=== PATIENT | male | born 1970 | race African-American/Black ===

== ENCOUNTER 2020-01-05 22:21 | Emergency (ER) | payer SELFPAY ==
[~2020-01-05] VITALS: Ht 177.8 cm; Wt 113.0 kg
[2020-01-05] MEDS ORDERED: HALOPERIDOL LACTATE 5MG/ML VIAL IM STA (22:48)
[2020-01-05] MEDS ORDERED: SODIUM CHLORIDE 0.9% 1,000 ML IV ONE (22:48)
[2020-01-05] MEDS ORDERED: LORAZEPAM 2MG/ML CPJ IM STA (22:48)
[2020-01-05] MEDS ORDERED: BACITRACIN ZINC OINT UDPKT TOP ONE (23:00)
[2020-01-05] MEDS ORDERED: LIDOCAINE 1%/EPI 1:100,000 10 ML VIAL IJ ONE (23:00)
[2020-01-05] MEDS ORDERED: TETANUS, DIPHTHERIA, PERTUSSIS VAC/PF 0.5ML (>7YR OLD) IM ONE (23:00)
[2020-01-05 23:31] LABS: BASOPHILS % 0.7 % (0.0-2.0); EOSINOPHILS % 0.5 % (0.0-5.0); HEMATOCRIT. 39.4 % (42.0-52.0); HEMOGLOBIN. 13.5 g/dL (14.0-18.0); LYMPHOCYTES % 15.6 % (20.0-50.0); MEAN CORPUSCULAR HEMOGLOBIN 30.2 pg (28.0-32.0); MEAN CORPUSCULAR VOLUME 88.2 fL (80.0-94.0); MEAN PLATELET VOLUME 8.1 fl (7.4-10.4); MONOCYTES % 7.3 % (2.0-8.0); NEUTROPHILS % 75.9 % (40.0-76.0); PLATELET 321 x1000/uL (130-400); RED BLOOD CELL COUNT 4.46 mill/uL (4.7-6.1); RED CELL DISTRIBUTION WIDTH 13.9 % (11.6-14.6)
[2020-01-05 23:36] LABS: CHLORIDE 105 mEq/L (98-107)
[2020-01-05 23:41] LABS: ETHANOL BLOOD 14 mg/dL
[2020-01-06] MEDS ORDERED: OLANZAPINE 10 MG/VIAL IM ONE ×3 (00:30→14:30)
[2020-01-06 00:32] LABS: CLARITY URINE CLEAR (CLEAR); COLOR URINE YELLOW (YELLOW); KETONES URINE TRACE (NEGATIVE); LEUKOCYTE ESTERASE URINE NEGATIVE (NEGATIVE); NITRITE URINE NEGATIVE (NEGATIVE); OCCULT BLOOD URINE NEGATIVE (NEGATIVE); PROTEIN URINE NEGATIVE (NEGATIVE); SPECIFIC GRAVITY URINE 1.024 (1.005-1.030)
[2020-01-06 00:42] LABS: *AMPHETAMINES SCREEN URINE PRESUMTIVE POSITIVE (NEGATIVE); *BARBITURATES SCREEN URINE NEGATIVE (NEGATIVE); *BENZODIAZEPINES SCREEN URINE NEGATIVE (NEGATIVE); *COCAINE SCREEN URINE PRESUMTIVE POSITIVE (NEGATIVE); METHADONE URINE SCREEN NEGATIVE (NEGATIVE); OPIATES URINE SCREEN NEGATIVE (NEGATIVE); PHENCYCLIDINE URINE SCREEN NEGATIVE (NEGATIVE)
[2020-01-06 00:43] LABS: CANNABINOID URINE SCREEN PRESUMTIVE POSITIVE (NEGATIVE)
[2020-01-06] MEDS ORDERED: OLANZAPINE 5MG TABLET ODT PO ONE (01:00)
[2020-01-06] MEDS ORDERED: LORAZEPAM 2MG/ML CPJ IV ONE ×4 (01:00→06:00)
[2020-01-06] MEDS ORDERED: LORAZEPAM 2MG/ML CPJ IV SCH (05:30)
[2020-01-06] MEDS: CEPHALEXIN 250MG CAPSULE PO SCH ×6 (05:45→21:00)
[2020-01-06] MEDS ORDERED: LORAZEPAM 2MG/ML CPJ IM STA (09:30)
[2020-01-07] MEDS: CEPHALEXIN 250MG CAPSULE PO SCH ×3 (09:00→17:00)
[2020-01-08] MEDS ORDERED: METFORMIN HCL 500MG TABLET PO SCH (05:00)
[2020-01-08] MEDS: CEPHALEXIN 250MG CAPSULE PO SCH ×4 (05:00→17:59)
[2020-01-08] MEDS ORDERED: LORAZEPAM 1MG TABLET PO ONE (15:15)
[2020-01-09] MEDS: CEPHALEXIN 250MG CAPSULE PO SCH ×3 (09:00→19:14)
[2020-01-09] MEDS ORDERED: DEXTROSE 50% WATER 50ML SYRINGE IV PRN (15:30)
[2020-01-09] MEDS: METFORMIN HCL 500MG TABLET PO SCH (17:00)
[2020-01-09] MEDS: OLANZAPINE 10MG TABLET PO SCH ×2 (17:00→19:23)
[2020-01-09] MEDS: BLOOD SUGAR DIAGNOSTIC STRIP TEST SCH (17:39)
[2020-01-09] MEDS: INSULIN LISPRO (LOW DOSE) 100 UNITS/ML SUBCUT SCH (18:57)
[2020-01-10] MEDS: INSULIN LISPRO (LOW DOSE) 100 UNITS/ML SUBCUT SCH ×5 (00:15→21:00)
[2020-01-10] MEDS: CEPHALEXIN 250MG CAPSULE PO SCH ×5 (00:15→22:00)
[2020-01-10] MEDS: BLOOD SUGAR DIAGNOSTIC STRIP TEST SCH ×5 (00:15→21:00)
[2020-01-10] MEDS: METFORMIN HCL 500MG TABLET PO SCH ×2 (09:04→17:29)
[2020-01-10] MEDS ORDERED: INSULIN REGULAR (HUMULIN R) 300UNITS/3ML SUBCUT ONE (10:15)
[2020-01-10] MEDS ORDERED: LORAZEPAM 1MG TABLET PO ONE (14:15)
[2020-01-11] MEDS: INSULIN LISPRO (LOW DOSE) 100 UNITS/ML SUBCUT SCH (08:20)
[2020-01-11] MEDS: METFORMIN HCL 500MG TABLET PO SCH (08:31)
[2020-01-11] MEDS: BLOOD SUGAR DIAGNOSTIC STRIP TEST SCH (08:31)
[2020-01-11 09:20] VITALS: BP 112/69
== END 2020-01-11 09:28 ==
LOC: ER 22:21
DX: R45.851 Suicidal ideations (principal); F20.9 Schizophrenia, unspecified; T40.5X1A Poisoning by cocaine, accidental (unintentional), initial encounter; Y92.89 Other specified places as the place of occurrence of the external cause
CPT/HCPCS: 12002; 36415; 80053; 80307; 80320; 80329; 85025; 93005; 96372; 96374; 96376; 99285; J1630; J1815; J2060; J3490; J7030; G0480